=== PATIENT | female | born 1985 | race Caucasian/White ===

== ENCOUNTER 2016-09-30 15:13 | Emergency (ER) | payer OTHER | END 2016-09-30 17:10 | disposition home or self-care (01) | LOC: ER1 15:13 | DX: O99.89 Other specified diseases and conditions complicating pregnancy, childbirth and the puerperium (principal); R05 Cough; R07.81 Pleurodynia; R51 Headache; R07.0 Pain in throat; O99.353 Diseases of the nervous system complicating pregnancy, third trimester; G40.909 Epilepsy, unspecified, not intractable, without status epilepticus; O99.333 Smoking (tobacco) complicating pregnancy, third trimester; F17.200 Nicotine dependence, unspecified, uncomplicated; Z88.0 Allergy status to penicillin; Z79.899 Other long term (current) drug therapy; Z3A.28 28 weeks gestation of pregnancy | CPT/HCPCS: 87081; 87880; 99283 ==

== ENCOUNTER 2016-10-18 22:24 | Outpatient (CLI) | payer OTHER | END 2016-10-18 22:52 | disposition home or self-care (01) | LOC: GENOP 22:24 | DX: O36.8130 Decreased fetal movements, third trimester, not applicable or unspecified (principal); Z3A.30 30 weeks gestation of pregnancy | CPT/HCPCS: 81001; 82731; G0463 ==

== ENCOUNTER 2022-01-06 20:50 | Emergency (ER) | payer OTHER, MEDICAID ==
[2022-01-06] MEDS ORDERED: CEPHALEXIN500 M1 PO ×2 (22:44→22:56)
[2022-01-06] MEDS ORDERED: ZANAFLEX4 MG PO ×2 (22:45→22:56)
== END 2022-01-06 22:55 | disposition home or self-care (01) ==
LOC: ER1 20:50
DX: S81.011A Laceration without foreign body, right knee, initial encounter (principal); S41.012A Laceration without foreign body of left shoulder, initial encounter; S56.911A Strain of unspecified muscles, fascia and tendons at forearm level, right arm, initial encounter; V43.52XA Car driver injured in collision with other type car in traffic accident, initial encounter; W22.10XA Striking against or struck by unspecified automobile airbag, initial encounter; Y92.410 Unspecified street and highway as the place of occurrence of the external cause; Z23 Encounter for immunization
CPT/HCPCS: 12002; 73030; 73060; 73080; 73564; 90471; 90715; 99283; J0690